=== PATIENT | male | born 2000 | race Caucasian/White ===

== ENCOUNTER 2022-02-01 01:21 | Emergency (ER) | payer BC, SELFPAY ==
--- NOTE | ~2022-02-01 | XR_ITS ---
XR ankle RT min 3V 02/01/2022 01:59 Indication: Right ankle pain after fall Procedure: 4 views right ankle Comparison: No prior studies for comparison. Findings: There is an oblique distal fibular metaphyseal fracture with approximately one cortical bon e width dorsal lateral displacement. Talar dome is normal. No other fracture. Moderate lateral soft t issue swelling. Impression: 1: Mildly displaced oblique distal fibular fracture with adjacent soft tissue swelling. Reviewed, dictated and finalized at location A. Impression: 1: Mildly displaced oblique distal fibular fracture with adjacent soft tissue s welling.
[2022-02-01 01:23] VITALS: BP 131/70; PULSE 103; RESP 18; TEMP 36.8; O2SAT 98
--- NOTE | 2022-02-01 01:35 | ED.LOWEXIN ---
HPI - Extremity Injury (Lower) General Chief Complaint: Extremity Injury, Lower Stated Complaint: Right ankle pain/injury Time Seen by Provider: 02/01/22 01:30 Source: patient History of Present Illness HPI Narrative: Patient presents with right ankle pain. Patient reports he was walking out of a bar slipped on some water and had an inversion injury. Not think much of his injury however he has been unable to ambulate since the fall as it causes too much pain so he came to the ER for further evaluation. The event happened approximately 30 to 45 minutes ago denies striking her head or any loss conscious denies any focal numbness or tingling. Reports pain on the outside of his right ankle constant achy worse with moving the joint, no radiation. Related Data Allergies Allergy/AdvReac Type Severity Reaction Status Date / Time No Known Allergies Allergy Verified 02/01/22 01:22 Review of Systems Review of Systems: CONSTITUTIONAL: Denies fever, chills, or sweats. EYES: Denies visual changes, redness, or discharge. ENT: Denies rhinorrhea, congestion, sore throat, or otalgia. CARDIOVASCULAR: Denies chest pain, palpitations, or edema. RESPIRATORY: Denies cough or dyspnea. GASTROINTESTINAL: Denies abdominal pain, nausea, vomiting, or diarrhea. GENITOURINARY: Denies dysuria or hematuria. SKIN: Denies rash or itching. MUSCULOSKELETAL: Denies back pain, or myalgia. NEUROLOGIC: Denies headache, numbness, dizziness, or weakness. PSYCHIATRIC: Denies anxiety or depression. All systems reviewed & are unremarkable except as noted in HPI and below PMFSH Past Medical History Medical History (Updated 02/01/22 @ 02:14 by Choco Pascual MD) Patient denies significant medical history Social History Social History (Updated 02/01/22 @ 01:36 by Choco Pascual MD) Living arrangements: with family Exam Narrative: GENERAL: Well-appearing, well-nourished, and in no acute distress. HEAD: Normocephalic, atraumatic. EYES: PERRLA and EOMI. ENT: Nares clear, no rhinorrhea or epistaxis. Mucous membranes moist. NECK: Supple. No masses. EXTREMITIES: Range of motion to the right ankle due to pain. There is edema noted on the right ankle there is diffuse tenderness on the lateral malleolus no ligamentous laxity noted at the right ankle. No obvious deformity distal extremity neurovascularly intact SKIN: Warm, dry, no rash. NEURO: No focal deficits. Alert and oriented x3. PSYCH: Normal mood and affect. Course Reevaluation(s) Reevaluation #1: Patient resting comfortably results reviewed with patient. Patient is comfortable with the outpatient plan. Date: 02/01/22 Time: 02:08 Vital Signs Vital signs: Vital Signs Temperature 36.8 C 02/01/22 01:23 Pulse Rate 103 H 02/01/22 01:23 Respiratory Rate 18 02/01/22 01:23 Blood Pressure 131/70 02/01/22 01:23 Pulse Oximetry 98 02/01/22 01:23 Oxygen Delivery Room Air 02/01/22 01:23 Temperature 36.8 C 02/01/22 01:23 Pulse Rate 99 02/01/22 02:48 Respiratory Rate 18 02/01/22 02:48 Blood Pressure 127/78 02/01/22 02:48 Pulse Oximetry 97 02/01/22 02:48 Oxygen Delivery Room Air 02/01/22 01:23 MDM - Extremity Injury (Lower) MDM Narrative Medical decision making narrative: H&P as above, vss, pt looks clinically well, exam tenderness on the lateral malleolus, imaging with distal fibula fracture, additional labs/img considered, symptomatic relief available as needed, on reevaluation pt continues to looks clinically well. Suspect mechanical event with isolated fracture, dns open fracture or major neurovascular compromise syncopal event plan to tx/monitor as op w/ Ortho f/u findings/plan discussed with pt, pt agree/comfortable with plan, return precautions given Imaging Data My impression: Distal fibular fracture minimally displaced Discharge Plan Discharge Clinical Impression: Fibula fracture Qualifiers: Encounter type: initial encounter Fibula location:
[2022-02-01 02:48] VITALS: BP 127/78; PULSE 99; RESP 18; O2SAT 97
== END 2022-02-01 02:44 | disposition home or self-care (01) ==
PROVIDERS: Emergency Provider Emergency Medicine
DX: S89.391A Other physeal fracture of lower end of right fibula, initial encounter for closed fracture (principal); X50.9XXA Other and unspecified overexertion or strenuous movements or postures, initial encounter
CPT/HCPCS: 29515; 73610; 99284